=== PATIENT | male | born 2000 | race African-American/Black ===

== ENCOUNTER 2020-07-08 16:54 | Emergency (ER) | payer OTHER ==
[~2020-07-08] VITALS: Ht 180 cm; Wt 102.0 kg
[2020-07-08] MEDS ORDERED: LIDOCAINE 1% INJ 20 ML 20 ML VIAL ONE (17:19)
--- NOTE | 2020-07-08 17:32 | Diagnostic Imaging Report ---
INDICATION: Left 5th finger injury 3 views of the left hand show a dislocated PIP joint of the 5th finger with posterior displacement of the middle phalanx. There is no appreciable fracture. IMPRESSION: Dorsally dislocated middle phalanx of the left 5th finger at the PIP joint. Dictated by: Dictated on workstation # [id number]
--- NOTE | 2020-07-08 17:36 | ED Upper Extremity ---
General Chief Complaint: Upper Extremity Stated Complaint: L HAND 5TH FINGER INJ Nursing Triage Note: PT PRESENTS TO ED VIA POV FROM GYM WITH COMPLAINTS OF PAIN TO L PINKY FINGER WHILE PLAYING BASKETBALL. Nursing Sepsis Screen: No Definite Risk History of Present Illness Date Seen by Provider: Jul 08, 2020 Time Seen by Provider: 17:10 Initial Comments 19-year-old -[place] male was playing basketball when he was diving for a ball and hit his left fifth finger with a noted deformity at the PIP joint. He denies any previous injuries to this hand. He is right-hand dominant for writing and [id number]-[id number] for basketball. He had a dislocation in his right third finger in the past. He denies any other injuries and is current on all immunizations. There are no abrasions or lacerations to the left fifth finger. Onset: just prior to arrival Pain/Injury Location: left 5th finger Method of Injury: sports injury Modifying Factors: Improves With Rest Allergies and Home Medications Allergies Coded Allergies: No Known Drug Allergies (Unverified , 07/08/20) Patient Home Medication List Home Medication List Reviewed: Yes Review of Systems Constitutional: no symptoms reported, see HPI Musculoskeletal: see HPI, joint pain (Left fifth finger at PIP joint) All Other Systems Reviewed Negative Unless Noted: Yes Past Uozfucr-Hqvjag-Krkkpz Hx Past Med/Social Hx: Reviewed Nursing Past Med/Soc Hx Patient Social History Alcohol Use: Occasionally Uses Smoking Status: Never a Smoker Recent Infectious Disease Expo: No Recent Hopitalizations: No Seasonal Allergies Seasonal Allergies: No Past Medical History Surgeries: No Respiratory: No Cardiac: No Neurological: No Genitourinary: No Gastrointestinal: No Musculoskeletal: No Endocrine: No HEENT: No Cancer: No Psychosocial: No Integumentary: No Blood Disorders: No Physical Exam Vital Signs Vital Signs - First Documented 07/08/20 17:05 Temp 36.9 Pulse 134 Resp 20 B/P (MAP) 133/95 (108) Pulse Ox 94 Capillary Refill : Less Than 3 Seconds Height, Weight, BMI Height: '" Weight: lbs. oz. kg; 31.00 BMI Method: General Appearance: WD/WN, no apparent distress Cardiovascular: normal peripheral pulses, regular rate, rhythm Respiratory: chest non-tender, lungs clear, normal breath sounds Hand: Left, asymmetry, bone tenderness (Fifth finger PIP joint), limited ROM, soft tissue tenderness Neurologic/Tendon: normal sensation, normal motor functions, normal tendon functions Neurologic/Psychiatric: no motor/sensory deficits, alert, normal mood/affect, oriented x 3 Skin: normal color, warm/dry Procedures/Interventions Splinting and Joint Reduction : Location: Left fifth finger PIP Pre-Proc Neuro Vasc Exam: normal Post-Proc Neuro Vasc Exam: normal Progress Using sterile technique a digital block was completed for the fifth finger on the left hand using 8 mL of lidocaine 1%. The patient tolerated that well. Once adequate local anesthesia was obtained. The dislocation was exaggerated and then distally pulled distally to reduce, 3 attempts before a pop was felt and heard and deformity was resolved. Patient had full range of motion of the left fifth finger with resisted flexion and extension at the PIP, DIP and MCP being 5/5. Postreduction films showed satisfactory reduction with no fractures. Aluminum padded splint applied to keep the finger in extension from the MCP to the DIP joint. Patient tolerated the procedure well. Pre-Procedure NV Exam: Yes post joint reduction film: joint reduced Hand-Made Type: Finger splint Progress/Results/Core Measures Results/Orders My Orders Orders - CLAUDE JACKSON Finger(S) (07/08/20 17:14) Lidocaine 1% Inj 20 Ml (Xylocaine 1% Inj (07/08/20 17:19) Finger(S) (07/08/20 17:44) Medications Given in ED Current Medications Medications Dose Ordered Sig/Beatriz Route Start Time Stop Time Status Last Admin Dose Admin Lidocaine HCl 20 ml STK-MED ONCE .ROUTE 07/08/20 17:19 07/08/20 17:27 DC 07/08/20 17:40 20 ML Vital Signs/I&O 07/08/20 07/08/20 17:05 18:09 Temp 36.9 36.4 Pulse 134 105 Resp 20 20 B/P (MAP) 133/95 (108) 158/110 (108) Pulse Ox 94 98 Blood Pressure Mean: 108 Diagnostic Imaging Diagonstic Imaging: Xray Plain Films/CT/US/NM/MRI: other (Finger) Comments NAME: MCKAYLA JO MED REC#: [id number] PT STATUS: REG ER : 2000 PHYSICIAN: CLAUDE JACKSON ADMIT DATE: 07/08/20/ER Signed Date of Exam:07/08/20 FINGER(S) INDICATION: Left 5th finger injury 3 views of the left hand show a dislocated PIP joint of the 5th finger with posterior displacement of the middle phalanx. There is no appreciable fracture. IMPRESSION: Dorsally dislocated middle phalanx of the left 5th finger at the PIP joint. Dictated by: Dictated on workstation # [id number] Dict: 07/08/201729 Trans: 07/08/201732 [facility] [id number] Interpreted by: SHAKIR CARR MD Electronically signed by: SHAKIR CARR MD 07/08/201732 Reviewed: Reviewed by Me Departure Impression Primary Impression: Dislocation of proximal interphalangeal joint of left little finger, initial encounter Disposition: 01 HOME, SELF-CARE Condition: Improved Departure-Patient Inst. Decision time for Depature: 17:40 Referrals: NO,LOCAL PHYSICIAN (PCP) Primary Care Physician MERCEDES MOSQUEDA MD Patient Instructions: Finger Dislocation (DC) Add. Discharge Instructions: Ice and elevate left fifth finger. Wear splint at all times until your follow-up appointment at [facility]. May remove to shower. Call for an appointment for [facility] to be seen early next week and possible referral to orthopedics. You may alternate between Tylenol 650 mg and ibuprofen 600 mg every 4 hours for pain or swelling. Return to the emergency department for new, urgent healthcare needs. All discharge instructions reviewed with patient and/or family. Voiced understanding. Copy Copies To 1: MERCEDES MOSQUEDA MD, AMY ARNP Jul 08, 2020 17:36
--- NOTE | 2020-07-08 18:01 | Diagnostic Imaging Report ---
INDICATION: Left 5th finger dislocation followup. 3 views of left hand shows interval reduction of the PIP joint of the left 5th finger. There is no fracture seen. IMPRESSION: Successful interval reduction of the left 5th PIP joint. Dictated by: Dictated on workstation # [id number]
[2020-07-08 18:09] VITALS: BP 158/110
== END 2020-07-08 18:09 | disposition home or self-care (01) ==
LOC: EDSEX 16:57 → ER 16:57
DX: S63.287A Dislocation of proximal interphalangeal joint of left little finger, initial encounter (principal); W21.05XA Struck by basketball, initial encounter; Y93.67 Activity, basketball
CPT/HCPCS: 26770; 29130; 64450; 73140